=== PATIENT | female | born 1995 | race Caucasian/White ===

== ENCOUNTER 2017-10-10 16:50 | Emergency (ER) | payer OTHER ==
[~2017-10-10] VITALS: Ht 154.9 cm; Wt 84.8 kg
[~2017-10-10 16:50] MED LIST: ATARAX25 MG PO; BACTRIM DS 8001 TA1 PO; BENADRYL25 MG PO; CIPRODEX 0.3%-7.5 ML OT; DEPO PROVER150 MG/M1 IM; DIAZEPAM10 MG PO; DIFLUCAN150 MG PO; FLAGYL500 MG PO; FLONASE ALLERG9.9 ML NAS; LIDEX0.05% T; LOMOTIL 0.025 M1 TA1 PO; MOTRIN400 MG PO; NKHM; PREDNICOT20 MG PO; PREDNISONE10 MG PO; ROBITUSSIN AC 110 ML PO; ZANTAC150 MG PO; ZITHROMAX Z PA250 MG PO; ZITHROMAX200 MG/5 M PO; ZITHROMAX250 MG PO
[2017-10-10] MEDS ORDERED: NAPROSYN500 MG PO (17:07)
== END 2017-10-10 18:07 | disposition home or self-care (01) ==
LOC: ED 16:50
DX: S93.401A Sprain of unspecified ligament of right ankle, initial encounter (principal); R03.0 Elevated blood-pressure reading, without diagnosis of hypertension; F17.200 Nicotine dependence, unspecified, uncomplicated; Z79.899 Other long term (current) drug therapy; Z88.1 Allergy status to other antibiotic agents; X50.1XXA Overexertion from prolonged static or awkward postures, initial encounter; Y93.89 Activity, other specified; Y92.89 Other specified places as the place of occurrence of the external cause; Y99.9 Unspecified external cause status

== ENCOUNTER → 2019-08-30 | Outpatient (CLI) | payer OTHER ==
[~2019-08-30] MED LIST changes: +NAPROSYN500 MG PO
== END | disposition home or self-care (01) ==
LOC: US 10:55
DX: Z34.02 Encounter for supervision of normal first pregnancy, second trimester (principal); Z3A.19 19 weeks gestation of pregnancy

== ENCOUNTER 2020-03-15 15:52 | Emergency (ER) | payer OTHER ==
[~2020-03-15] VITALS: Wt 95.3 kg
[2020-03-15] MEDS ORDERED: NORETH-ESTRAD-1 EAC1 PO (16:09)
[2020-03-15] MEDS ORDERED: MEDROL DOSEPAK4 MG PO (16:30)
[2020-03-15] MEDS ORDERED: KENALOG 0.1%80 GM T (16:30)
== END 2020-03-15 16:43 | disposition home or self-care (01) ==
LOC: ED 15:52
DX: T63.441A Toxic effect of venom of bees, accidental (unintentional), initial encounter (principal); M79.89 Other specified soft tissue disorders; Z88.1 Allergy status to other antibiotic agents; Z79.899 Other long term (current) drug therapy; Y92.89 Other specified places as the place of occurrence of the external cause

== ENCOUNTER 2020-03-25 16:30 | Emergency (ER) | payer OTHER ==
[~2020-03-25] VITALS: Ht 157.4 cm; Wt 93.0 kg
[~2020-03-25 16:30] MED LIST changes: +KENALOG 0.1%80 GM T; +MEDROL DOSEPAK4 MG PO; +NORETH-ESTRAD-1 EAC1 PO
[2020-03-25 17:07] LABS: BILIRUBIN 1+ (NEGATIVE); CLARITY SL CLOUDY (CLEAR); COLOR YELLOW (YELLOW); GLUCOSE NEGATIVE (NEGATIVE); KETONE NEGATIVE (NEGATIVE)
[2020-03-25 17:08] LABS: BLOOD NEGATIVE (NEGATIVE); LEUKO ESTERASE TRACE (NEGATIVE); NITRITE NEGATIVE (NEGATIVE); UROBILINOGEN 0.2 E.U./dl (0.2-1.0)
[2020-03-25 17:09] LABS: BACTERIA 1+; EPITHELIAL CELLS 51-100
[2020-03-25 17:52] LABS: HEMATOCRIT 39.3 % (37.0-47.0); MEAN CELL VOLUME 85.8 fl (81.0-99.0); MEAN CORPUSCULAR HGB 27.9 pg (27.0-31.0); MEAN CORPUSCULAR HGB CONC 32.6 g/dl (33.0-37.0); MEAN PLATELET VOLUME 9.4 fl (9.6-12.3); PLATELET COUNT AUTOMATED 333 10*3/uL (130-400); RED BLOOD COUNT 4.58 10*6/uL (4.10-5.10); WHITE BLOOD COUNT 27.3 10*3/uL (4.8-10.8)
[2020-03-25 18:03] LABS: ACT PARTIAL THROMBO TIME 25.9 SECONDS (20.0-32.1); INTERNATIONAL NORM RATIO 0.9 (2.0-3.5)
[2020-03-25 18:15] LABS: ALBUMIN 3.2 gm/dl (3.1-4.5); ALKALINE PHOSPHATASE 65 U/L (45-117); BUN 14 mg/dl (7-24); CHLORIDE 109 mmol/L (98-107); CREATININE 0.95 mg/dL (0.55-1.02); LIPASE 75 U/L (73-393); POTASSIUM 3.7 mmol/L (3.5-5.1); SGOT/AST 13 IU/L (3-35); SGPT/ALT 23 U/L (12-78); SODIUM 139 mmol/L (136-145); TOTAL PROTEIN 6.9 gm/dL (6.4-8.2)
[2020-03-25 18:17] LABS: TOTAL CELLS COUNTED 100 #CELLS
[2020-03-25 18:18] LABS: PLATELET SUFFICIENCY NORMAL (NORMAL)
[2020-03-25 18:20] LABS: TROPONIN I < 0.015 ng/ml (<0.045)
[2020-03-25] MEDS ORDERED: CEPHALEXIN500 M1 PO (22:49)
== END 2020-03-25 23:32 | disposition home or self-care (01) ==
LOC: ED 16:30
PROVIDERS: Emergency Medicine; Nurse Practitioner Family
DX: N39.0 Urinary tract infection, site not specified (principal); Z88.8 Allergy status to other drugs, medicaments and biological substances; Z79.899 Other long term (current) drug therapy

== ENCOUNTER → 2020-04-07 | Outpatient (CLI) | payer OTHER ==
[~2020-04-07] MED LIST changes: +CEPHALEXIN500 M1 PO
== END | disposition home or self-care (01) ==
LOC: US 12:30
DX: N83.209 Unspecified ovarian cyst, unspecified side (principal)

== ENCOUNTER → 2020-10-25 | Outpatient (CLI) | payer OTHER ==
[~2020-10-25] MED LIST changes: +CLINDAMYCIN HC300 MG PO; +Motrin,Rufen800 MG PO
== END | disposition home or self-care (01) ==
LOC: US 12:44
PROVIDERS: ATTEND Nurse Practitioner Women's Health
DX: Z34.81 Encounter for supervision of other normal pregnancy, first trimester (principal); Z3A.11 11 weeks gestation of pregnancy

== ENCOUNTER 2020-12-10 06:14 | Emergency (ER) | payer OTHER ==
[~2020-12-10] VITALS: Wt 95.3 kg
[~2020-12-10 06:14] MED LIST changes: -CLINDAMYCIN HC300 MG PO; -Motrin,Rufen800 MG PO
[2020-12-10] MEDS ORDERED: CLINDAMYCIN HC300 MG PO (07:56)
== END 2020-12-10 07:59 | disposition home or self-care (01) ==
LOC: ED 06:14
DX: O99.612 Diseases of the digestive system complicating pregnancy, second trimester (principal); K02.9 Dental caries, unspecified; Z88.0 Allergy status to penicillin; Z88.1 Allergy status to other antibiotic agents; Z96.22 Myringotomy tube(s) status; Z3A.18 18 weeks gestation of pregnancy

== ENCOUNTER → 2020-12-13 | Outpatient (CLI) | payer OTHER ==
[~2020-12-13] MED LIST changes: +CLINDAMYCIN HC300 MG PO; +Motrin,Rufen800 MG PO
== END | disposition home or self-care (01) ==
LOC: US 10:24
PROVIDERS: ATTEND Nurse Practitioner Women's Health
DX: O32.1XX0 Maternal care for breech presentation, not applicable or unspecified (principal); Z3A.18 18 weeks gestation of pregnancy

== ENCOUNTER 2021-01-12 18:15 | Emergency (ER) | payer OTHER ==
[~2021-01-12] VITALS: Ht 154.9 cm; Wt 99.8 kg
[~2021-01-12 18:15] MED LIST changes: -Motrin,Rufen800 MG PO
[2021-01-12] MEDS ORDERED: Motrin,Rufen800 MG PO (18:44)
[2021-01-12] MEDS ORDERED: CLINDAMYCIN HC300 MG PO (18:44)
== END 2021-01-12 18:51 | disposition home or self-care (01) ==
LOC: ED 18:15
DX: K08.89 Other specified disorders of teeth and supporting structures (principal); Z88.8 Allergy status to other drugs, medicaments and biological substances; Z79.899 Other long term (current) drug therapy; Z98.890 Other specified postprocedural states

== ENCOUNTER → 2021-03-05 | Outpatient (CLI) | payer OTHER ==
[~2021-03-05] MED LIST changes: +Motrin,Rufen800 MG PO
== END | disposition home or self-care (01) ==
LOC: LAB 07:58
PROVIDERS: ATTEND Nurse Practitioner Women's Health
DX: O99.810 Abnormal glucose complicating pregnancy (principal); Z3A.30 30 weeks gestation of pregnancy

== ENCOUNTER 2023-03-14 01:48 | Emergency (ER) | payer OTHER ==
[~2023-03-14] VITALS: Ht 167.6 cm; Wt 103.0 kg
[2023-03-14 02:26] LABS: BASO % 0.3 % (0.0-1.0); EOS # 0.2 10*3/uL (0.0-0.4); EOS % 1.6 % (1.0-4.0); HEMATOCRIT 36.1 % (37.0-47.0); LYMPH # 4.8 10*3/uL (1.3-4.4); LYMPH % 37.7 % (27.0-41.0); MEAN CELL VOLUME 84.5 fl (81.0-99.0); MEAN CORPUSCULAR HGB 29.3 pg (27.0-31.0); MEAN CORPUSCULAR HGB CONC 34.6 g/dl (33.0-37.0); MEAN PLATELET VOLUME 9.2 fl (9.6-12.3); MONO # 0.7 10*3/uL (0.1-1.0); MONO % 5.4 % (3.0-9.0); NEUT % 54.5 % (47.0-73.0); PLATELET COUNT AUTOMATED 258 10*3/uL (130-400); RED BLOOD COUNT 4.27 10*6/uL (4.10-5.10); RED CELL DISTRI WIDTH 12.9 % (0-14.5); WHITE BLOOD COUNT 12.9 10*3/uL (4.8-10.8)
[2023-03-14 02:30] LABS: BILIRUBIN Negative (Negative); BLOOD 3+ (Negative); CLARITY Clear (Clear); COLOR Yellow (Yellow); GLUCOSE Negative (Negative); KETONE Negative (Negative); LEUKO ESTERASE Trace (Negative); NITRITE Negative (Negative); SPECIFIC GRAVITY <= 1.005 (1.001-1.030); UROBILINOGEN 0.2 E.U./dl (0.0-1.0)
[2023-03-14 02:39] LABS: EPITHELIAL CELLS 21-30
[2023-03-14 02:40] LABS: BACTERIA 1+; RBC 21-30 rbc/hpf (0-2); WBC 16-20 wbc/hpf (0-5)
[2023-03-14 02:55] LABS: ALKALINE PHOSPHATASE 61 U/L (46-116); CHLORIDE 107 mmol/L (98-107); LIPASE 32 U/L (12-53); POTASSIUM 3.4 mmol/L (3.4-5.1); SGPT/ALT 15 U/L (10-49); TOTAL PROTEIN 6.7 gm/dL (6.0-8.0)
[2023-03-14 02:56] LABS: BUN < 5 mg/dl (9-23)
[2023-03-14] MEDS ORDERED: MACROBID100 M1 PO (11:25)
== END 2023-03-14 06:50 | disposition home or self-care (01) ==
LOC: ED 01:48
PROVIDERS: Emergency Medicine
DX: O20.0 Threatened abortion (principal); O23.41 Unspecified infection of urinary tract in pregnancy, first trimester; N39.0 Urinary tract infection, site not specified; Z3A.14 14 weeks gestation of pregnancy; Z88.1 Allergy status to other antibiotic agents

== ENCOUNTER → 2023-03-15 | Outpatient (CLI) | payer OTHER ==
[~2023-03-15] MED LIST changes: +MACROBID100 M1 PO
== END | disposition home or self-care (01) ==
LOC: LAB 09:58
PROVIDERS: ATTEND Nurse Practitioner Women's Health
DX: O46.92 Antepartum hemorrhage, unspecified, second trimester (principal); Z3A.00 Weeks of gestation of pregnancy not specified

== ENCOUNTER → 2023-07-26 | Outpatient (CLI) | payer OTHER | END | disposition home or self-care (01) | LOC: LAB 07:06 | PROVIDERS: ATTEND Nurse Practitioner Women's Health | DX: R73.02 Impaired glucose tolerance (oral) (principal) ==

== ENCOUNTER 2024-06-24 18:43 | Emergency (ER) | payer OTHER ==
[~2024-06-24] VITALS: Ht 154.9 cm; Wt 122.5 kg
[2024-06-24] MEDS ORDERED: DEPO-PROVE150 MG/1 M IM (19:17)
[2024-06-24 19:44] LABS: HEMATOCRIT 38.8 % (37.0-47.0); MEAN CELL VOLUME 85.3 fl (81.0-99.0); MEAN CORPUSCULAR HGB 28.1 pg (27.0-31.0); MEAN PLATELET VOLUME 8.9 fl (9.6-12.3); PLATELET COUNT AUTOMATED 295 10*3/uL (130-400); RED BLOOD COUNT 4.55 10*6/uL (4.10-5.10); RED CELL DISTRI WIDTH 13.3 % (0-14.5); WHITE BLOOD COUNT 15.8 10*3/uL (4.8-10.8)
[2024-06-24 19:45] LABS: MANUAL DIFF REFLEX YES
[2024-06-24 19:59] LABS: BUN 7 mg/dl (9-23); CHLORIDE 107 mmol/L (98-107); POTASSIUM 3.6 mmol/L (3.4-5.1)
[2024-06-24 20:00] LABS: BILIRUBIN Negative (Negative); BLOOD Negative (Negative); CLARITY Clear (Clear); COLOR Yellow (Yellow); GLUCOSE Negative (Negative); KETONE Negative (Negative); LEUKO ESTERASE Trace (Negative); NITRITE Negative (Negative); PH 5.5 (4.5-8.0); SPECIFIC GRAVITY <= 1.005 (1.001-1.030); UROBILINOGEN 0.2 E.U./dl (0.0-1.0)
[2024-06-24 20:04] LABS: BASOPHILS 1 % (0-1); PLATELET SUFFICIENCY NORMAL (NORMAL); TOTAL CELLS COUNTED 100 #CELLS
[2024-06-24 20:06] LABS: ROULEAUX SLIGHT
[2024-06-24 20:07] LABS: OVALOCYTES FEW
[2024-06-24 20:10] LABS: BACTERIA 1+; RBC 0-2 rbc/hpf (0-2)
[2024-06-24] MEDS ORDERED: Doxycycline Hyclate 100 MG CAP PO ONE (20:55)
[2024-06-24] MEDS ORDERED: VIBRAMYCIN100 MG PO (20:57)
[2024-06-24] MEDS ORDERED: ANUSOL HC30 GM R (20:57)
== END 2024-06-24 21:09 | disposition home or self-care (01) ==
LOC: ED 18:43
PROVIDERS: Nurse Practitioner Family
DX: K62.89 Other specified diseases of anus and rectum (principal); F17.200 Nicotine dependence, unspecified, uncomplicated; Z88.1 Allergy status to other antibiotic agents; Z98.890 Other specified postprocedural states

== ENCOUNTER 2024-12-14 16:49 | Emergency (ER) | payer MEDICAID ==
[~2024-12-14] VITALS: Ht 154.9 cm; Wt 98.9 kg
[~2024-12-14 16:49] MED LIST changes: +ANUSOL HC30 GM R; +DEPO-PROVE150 MG/1 M IM; +VIBRAMYCIN100 MG PO
[2024-12-14] MEDS ORDERED: CLINDAMYCIN HCL 300 MG CAPSULE PO ONE (19:35)
[2024-12-14] MEDS ORDERED: Acetaminophen/Hydrocodone 5 MG/325 MG TABLET PO ONE (19:35)
[2024-12-14] MEDS ORDERED: Ondansetron Hydrochloride 4 MG TAB SL ONE (19:40)
[2024-12-14] MEDS ORDERED: CLINDAMYCIN HC300 MG PO (20:22)
== END 2024-12-14 20:21 | disposition home or self-care (01) ==
LOC: ED 16:49
DX: K02.9 Dental caries, unspecified (principal); F17.200 Nicotine dependence, unspecified, uncomplicated; Z88.1 Allergy status to other antibiotic agents; Z98.890 Other specified postprocedural states

== ENCOUNTER 2025-06-17 19:40 | Emergency (ER) | payer MEDICAID ==
[~2025-06-17] VITALS: Wt 113.4 kg
[2025-06-17] MEDS ORDERED: VIBRAMYCIN100 MG PO (20:51)
== END 2025-06-17 20:57 | disposition home or self-care (01) ==
LOC: ED 19:40
DX: J32.9 Chronic sinusitis, unspecified (principal); Z88.1 Allergy status to other antibiotic agents; Z96.22 Myringotomy tube(s) status